=== PATIENT | male | born 1980 | race Caucasian/White ===

== ENCOUNTER 2022-08-25 08:30 | Outpatient (CLI) | payer OTHER, SELFPAY ==
[2022-08-25 13:47] LABS: Basophils Absolute Auto 0.05 K/uL (0.00-0.30); Basophils Percent Auto 0.8 % (0.0-3.0); Eosinophils Absolute Auto 0.28 K/uL (0.00-0.50); Eosinophils Percent Auto 4.6 % (0.0-7.0); Hematocrit 50.4 % (37.0-53.0); Hemoglobin* 16.9 gm/dL (13.5-17.5); Lymphocytes Absolute Auto 2.07 K/uL (0.90-2.90); Lymphocytes Percent Auto 34.2 % (20-44); Mean Corpuscular HGB Conc 34 gm/dL (32-36); Mean Corpuscular Hemoglobin 29 pg (26-34); Mean Corpuscular Volume 86 fL (80-100); Monocytes Percent Auto 10.4 % (0.0-11.0); Neutrophils Absolute Auto 3.02 K/uL (1.7-7.0); Platelet Count* 278 K/uL (140-440); RDW Coefficient of Variation % 11.8 % (11.5-15.5); Red Blood Count 5.85 m/uL (4.30-5.90); White Blood Count* 6.05 K/uL (4.50-11.00)
[2022-08-25 14:01] LABS: Slide Review Reflex No
[2022-08-25 14:36] LABS: Chloride* 101 mmol/L (96-114); Sodium* 137 mmol/L (135-149)
[2022-08-25 14:37] LABS: Potassium* 4.9 mmol/L (3.6-5.1)
[2022-08-25 14:39] LABS: Alanine Aminotransferase* 61 U/L (4-50); Carbon Dioxide* 27 mmol/L (20-32); Cholesterol* 222 mg/dL (90-199); Creatinine* 0.8 mg/dL (0.5-1.5); Estimated Glomerular Filt Rate 112 ml/min
[2022-08-25 14:40] LABS: Blood Urea Nitrogen* 14 mg/dL (5-24); Calcium* 9.7 mg/dL (8.4-10.6); Glucose* 99 mg/dL (60-115); HDL Cholesterol* 33 mg/dL (>=40); LDL Cholesterol Calculated 147 mg/dL (<100); Triglycerides* 211 mg/dL (40-149)
[2022-08-26 14:28] LABS: Testosterone, Adult Male 499 ng/dL (300-890)
== END 2022-08-25 08:31 | disposition home or self-care (01) ==
PROVIDERS: PCP Family Medicine; Visit Provider Family Medicine
DX: Z13.6 Encounter for screening for cardiovascular disorders (principal); R53.83 Other fatigue; I10 Essential (primary) hypertension; E78.5 Hyperlipidemia, unspecified
CPT/HCPCS: 80048; 80061; 84403; 84443; 84460; 85025

== ENCOUNTER 2022-11-27 19:30 | Outpatient (CLI) | payer OTHER, SELFPAY ==
--- NOTE | 2022-12-13 09:04 | W.PM.SLEEP ---
Sleep Study Details Details Interpreting Provider: Shahbaz Stubbs MD Date of Sleep Study: 11/27/22 Sleep Study Details: STUDY TYPE:? Home ? BMI:? 35.6 ORDERING PROVIDER:? Leonila INDICATION:? Concerns about sleep apnea ? SLEEP SUMMARY:? 476 minutes monitored RESPIRATORY SUMMARY:? AHI 23.1, supine 63.2, prone 17.6, left lateral 6.8, right lateral 3.6 Low oxygen 86 0.9% of the study oxygen less than 90% Snoring 2.7% PERIODIC LIMB MOVEMENTS OF SLEEP:? Not recorded CARDIAC:? Range 42-101, mean 65.1 beats per minute IMPRESSION:? Moderate obstructive sleep apnea overall with significant supine position dependency RECOMMENDATION: Treatment options would include AutoSet CPAP pressure 4-17 versus dental appliance. Weight loss is recommended. Dental appliance is unlikely to be effective.
== END 2022-11-27 19:31 | disposition home or self-care (01) ==
PROVIDERS: PCP Family Medicine; Visit Provider Family Medicine
DX: G47.33 Obstructive sleep apnea (adult) (pediatric) (principal)
CPT/HCPCS: 95806

== ENCOUNTER 2023-11-20 09:21 | Outpatient (CLI) | payer OTHER, SELFPAY | END 2023-11-20 09:22 | disposition home or self-care (01) | PROVIDERS: PCP Family Medicine; Visit Provider Family Medicine | DX: E78.5 Hyperlipidemia, unspecified (principal); I10 Essential (primary) hypertension | CPT/HCPCS: 80048; 80061; 84460; 85025 ==

== ENCOUNTER 2025-01-06 16:01 | Outpatient (CLI) | payer OTHER, SELFPAY | END 2025-01-06 16:02 | disposition home or self-care (01) | PROVIDERS: PCP Family Medicine; Visit Provider Family Medicine | DX: E78.2 Mixed hyperlipidemia (principal); I10 Essential (primary) hypertension; R53.83 Other fatigue; M79.12 Myalgia of auxiliary muscles, head and neck | CPT/HCPCS: 80048; 80061; 82550; 84443; 85025; 85651 ==

== ENCOUNTER 2025-10-21 15:56 | Emergency (ER) | payer OTHER, SELFPAY ==
[2025-10-21] VITALS (22 sets, daily range): BP systolic 104–123; BP diastolic 72–86; PULSE 67–94; RESP 11–19; TEMP 36.6; O2SAT 92–97
--- NOTE | 2025-10-21 16:30 | ED_ITS ---
HPI - General Adult General Date Seen: 10/21/25 Chief complaint: Shortness of Breath/Dyspnea Stated complaint: Tightness in chest, short of breath Time Seen by Provider: 10/21/25 16:07 History of Present Illness HPI narrative: 45-year-old male with a history hyperlipidemia, hypertension, sleep, history of right knee surgery with meniscus tear and osteoarthritis, who presents to the ER by private car this afternoon with concern for chest tightness and shortness of breath which began yesterday. No fever. Known sick contacts. He notes that he has had episodes, infrequently, dating back for several years where he sometimes gets chest tightness in the center of his chest. He recalls that he had an episode perhaps 10 years ago that had chest tightness radiating down his left arm that prompted to come to the ER. He had a negative workup after that visit. Does not sound like he ever had a stress test. He notes that for the past few days that he has just been feeling ?off. ? And feels like something is wrong. In particular, since yesterday he has been experiencing sub some sternal chest tightness. He had an episode that began mid to late afternoon yesterday,. He was at home, not doing any strenuous activity when he just started to feel some tightness in his chest. Sit in the center of his chest and in the upper. Does not radiate down his arm this time. It does not radiate to his back. It just feels like a tightness and like something is wrong. He is not nauseous. He was not feeling any palpitations during that episode. No dizziness. No abdominal pain. No fever. No cough. No known sick contacts. It sounds like his chest was pretty tight for a short period of time, couple of minutes and then got better but never completely back to normal last night. His chest was fairly normal this morning and then at around 11:00 a.m. he started having more tightness in his chest that is still persisting at the time of presentation here to the ER. Incidentally also sometimes feels palpitations in his heart, but they are not actually occurring today. He has a history of anxiety and says multiple times that he knows he has history of anxiety but is not anxious or panic Stanley here. He also says that he does not want to waste anyone time. I assured him that his chest pain symptoms are concerning and he does need workup. Our initial EKG does not show any clear ischemia but he needs troponin testing, chest x-ray, aspirin, nitro and much further workup. He consents to have lab draw. Related Data Home Medications ?Medication ?Instructions ?Recorded ?Confirmed multivitamin (Daily Multi-Vitamin 1 tab PO QDAY 10/21/25 tablet) metoprolol succinate 50 mg 50 mg PO DAILY 10/21/25 tablet,extended release 24 hr Previous Rx's ?Medication ?Instructions ?Recorded diclofenac sodium 75 mg 75 mg PO QDAY #180 tabs 01/04 11/30 tablet,delayed release losartan 100 mg tablet 100 mg PO QDAY #90 tabs 07/07 12/31 zolpidem 10 mg tablet 10 mg PO QHS PRN insomnia #3 0 tabs 07/18/25 aspirin 81 mg tablet 81 mg PO DAILY #14 tabs 10/06 04/30 Allergies Allergy/AdvReac Type Severity Reaction Status Date / Time No Known Drug Allergies Allergy Verified 10/21/25 16:03 [facility] Medical History (Updated 10/21/25 @ 19:46 by Pedro Finch MD) Mixed hyperlipidemia ?E78.2 - Mixed hyperlipidemia (ICD-10) Primary hypertension ?I10 - Essential (primary) hypertension (ICD-10) JEFFREY (obstructive sleep apnea) ?G47.33 - Obstructive sleep apnea (adult) (pediatric) (ICD-10) Bilateral carpal tunnel syndrome ?G56.03 - Carpal tunnel syndrome, bilateral upper limbs (ICD-10) Acute medial meniscal injury of right knee ?S83.8X1A - Sprain of other specified parts of right knee, initial encounter (ICD-10) Osteoarthritis of right knee ?M17.11 - Unilateral primary osteoarthritis, right knee (ICD-10) Surgical History Status post inguinal hernia repair ?Z98.890 - Other specified postprocedural states (ICD-10) ?Z87.19 - Personal history of other diseases of the digestive system (ICD-10) History of umbilical hernia repair ?Z98.890 - Other specified postprocedural states (ICD-10) ?Z87.19 - Personal history of other diseases of the digestive system (ICD-10) Family History Mother High blood pressure Other Multiple myeloma Social History (Updated 01/07/25 @ 14:35 by Stephanie Bentley, ORGANIZATIONAL DEVELOPMENT CONSULTANT) Narrative: ,2 kids, nonsmoker, no EtOH, 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[employer] What is your current living situation?: I presently have a place to live Problems where you live: no known problems In the past 12 months, utilities in danger of being shut off: no In past 12 months, lack of transportation kept you from medical appts, meetings, work, or getting things needed for daily living: no In the past 12 mos, have been you worried that your food would run out before you had money to buy more?: sometimes true In the past 12 mos, the food you bought just didn't last and you didn't have money to buy more?: sometimes true Smoking Status: Former smoker What tobacco products do you use: cigarettes Years smoked: 10 Smoking quit date/years: >15 years ago How often does anyone, including family, friends and others, physically hurt you : never How often does anyone, including family, friends and others, insult or talk down to you: rarely How often does anyone, including family, friends and others, threaten you with harm: never How often does anyone, including family, friends and others, scream or curse at you: never Health Related Social Needs: food insecurity (Z59.41) and Other personal risk factors, not elsewhere classified (Z91.89) Exam Narrative: Exam Narrative: Constitutional: Appears well-developed and well-nourished. Alert. Conversant. Non toxic. HENT: Head: Atraumatic. Nose: Nose normal. Mouth/Throat: Oral mucosa is clear and moist. no trismus. Pharynx normal. Tonsils symmetric. No tonsillar enlargement, erythema, or exudate. Eyes: Conjunctivae normal. EOM normal. Pupils equal, round, and reactive to light. No scleral icterus. Neck: Normal range of motion. Neck supple. No tracheal deviation present. No JVD Cardiovascular: Normal rate, regular rhythm. No gallop. No friction rub. No murmur heard. Symmetric radial artery pulses Pulmonary/Chest: Effort normal. No stridor. No respiratory distress. No wheezes. No rales. No rhonchi . No tenderness. Abdominal: Soft. Bowel sounds normal. No distension. No mass. No tenderness. No rebound. No guarding. Musculoskeletal: RUE: Normal range of motion. No tenderness. No deformity LUE: Normal range of motion. No tenderness. No deformity RLE: Normal range of motion. No edema. No tenderness. No deformity LLE: Normal range of motion. No edema. No tenderness. No deformity Neurological: Alert and oriented to person, place, and time. Normal strength. CN II-VII intact. No sensory deficit. GCS eye subscore is 4. GCS verbal subscore is 5. GCS motor subscore is 6. Normal coordination Skin: Skin is warm and dry. No rash noted. No pallor. Normal capillary refill. Psychiatric: Normal mood. Normal affect. Const: Vital Signs, click to edit/add: Vital Signs - 24 hr 10/21/25 15:59 10/21/25 16:17 10/21/25 16:30 Temperature 97.8 F Pulse Rate 81 81 Pulse Rate [Right Pulse Oximeter] 94 Respiratory Rate 16 18 13 Blood Pressure Blood Pressure [Ri ght Upper Arm] 123/77 Pulse Oximetry 94 94 94 Oxygen Delivery Me thod Room Air 10/21/25 16:45 10/21/25 17:00 10/21/25 17:15 Temperature Pulse Rate 81 83 Pulse Rate [Right Pulse Oximeter] Respiratory Rate 15 13 Blood Pressure Blood Pressure [Ri ght Upper Arm] Pulse Oximetry 96 96 Oxygen Delivery Me thod 10/21/25 17:30 10/21/25 17:45 10/21/25 18:00 Temperature Pulse Rate 72 81 79 Pulse Rate [Right Pulse Oximeter] Respiratory Rate 15 15 12 Blood Pressure Blood Pressure [Ri ght Upper Arm] Pulse Oximetry 95 96 95 Oxygen Delivery Me thod 10/21/25 18:07 10/21/25 18:09 10/21/25 18:11 Temperature Pulse Rate 91 76 82 Pulse Rate [Right Pulse Oximeter] Respiratory Rate 11 L 16 15 Blood Pressure 115/74 120/86 116/83 Blood Pressure [Ri ght Upper Arm] Pulse Oximetry 96 97 93 Oxygen Delivery Me thod Room Air 10/21/25 18:15 10/21/25 18:17 10/21/25 18:22 Temperature Pulse Rate 85 76 67 Pulse Rate [Right Pulse Oximeter] Respiratory Rate 13 15 19 Blood Pressure 110/77 115/77 Blood Pressure [Ri ght Upper Arm] Pulse Oximetry 92 93 95 Oxygen Delivery Me thod 10/21/25 18:27 10/21/25 18:30 10/21/25 18:33 Temperature Pulse Rate 76 79 82 Pulse Rate [Right Pulse Oximeter] Respiratory Rate 19 17 16 Blood Pressure 119/82 109/79 Blood Pressure [Ri ght Upper Arm] Pulse Oximetry 94 95 95 Oxygen Delivery Me thod 10/21/25 18:45 10/21/25 19:00 10/21/25 19:02 Temperature Pulse Rate 78 82 80 Pulse Rate [Right Pulse Oximeter] Respiratory Rate 19 18 12 Blood Pressure 104/72 Blood Pressure [Ri ght Upper Arm] Pulse Oximetry 96 94 96 Oxygen Delivery Me thod Room Air 10/21/25 19:15 Temperature Pulse Rate 79 Pulse Rate [Right Pulse Oximeter] Respiratory Rate 14 Blood Pressure Blood Pressure [Ri ght Upper Arm] Pulse Oximetry 95 Oxygen Delivery Me thod Course Course ED Course: Recheck-no change after nitro. Recheck-feeling better now. Got better on his own but not temporarily related to sublingual nitroglycerin. Currently pain-free. Vital Signs Vital signs: Initial Vital Signs Temperature 97.8 F 10/21/25 15:59 Temperature Source Temporal Artery Scan 10/21/25 15:59 Pulse Rate 94 10/21/25 15:59 Pulse Rhythm Regular 10/21/25 15:59 Pulse Strength 3+ Normal 10/21/25 15:59 Respiratory Rate 16 10/21/25 15:59 Blood Pressure 123/77 10/21/25 15:59 Blood Pressure Mean 92 10/21/25 15:59 Blood Pressure Position Sitting 10/21/25 15:59 Pulse Oximetry 94 10/21/25 15:59 Oxygen Delivery Method Room Air 10/21/25 15:59 Vital Signs Temperature 97.8 F 10/21/25 15:59 Pulse Rate 94 10/21/25 15:59 Respiratory Rate 16 10/21/25 15:59 Blood Pressure 123/77 10/21/25 15:59 Pulse Oximetry 94 10/21/25 15:59 Oxygen Delivery Method Room Air 10/21/25 15:59 Temperature 97.8 F 10/21/25 15:59 Pulse Rate 79 10/21/25 19:15 Respiratory Rate 14 10/21/25 19:15 Blood Pressure 104/72 10/21/25 19:02 Pulse Oximetry 95 10/21/25 19:15 Oxygen Delivery Method Room Air 10/21/25 19:02 Medications Administered Medications: Generic Name Dose Route Start Last Admin Trade Name Freq PRN Reason Stop Dose Admin Nitroglycerin 0.4 mg 10/21/25 16:53 10/21/25 18:08 Nitroglycerin 0.4 Mg Tab.Subl SUBLINGUAL 0.4 mg Q5M PRN Administration Discontinued Medications Generic Name Dose Route Start Last Admin Trade Name Freq PRN Reason Stop Dose Admin Aspirin 324 mg 10/21/25 16:53 10/21/25 18:06 Aspirin 81 Mg Tab.Chew PO 10/21/25 16:54 324 mg ONCE ONE Administration Medical Decision Making MDM Narrative Medical decision making narrative: This patient presents to the ER today for evaluation of chest discomfort that is been happening off and on for the past couple of days. Differential was broad. No evidence of palpitations, syncope or other cardiac dysrhythmia. We considered possible ACS, however workup with EKG and 2 hour delta troponin is negative. Given time since onset of symptoms, I do not think the patient needs to be admitted for further sets of enzymes. HEART score is 2, so overall low risk. Given the story being low risk, I think outpatient workup is appropriate. The patient does have significant concern for coronary disease and I think it is reasonable to get him scheduled for stress test and recommend close outpatien t follow-up for. EKG shows no evidence for pericarditis. Clinical presentation not suggestive of myocarditis. Chest x-ray shows no evidence for pneumonia, pneumothorax, pulmonary edema, pleural effusion, rib fracture, cardiomegaly. Mediastinum is normal on the x-ray. The patient has no ripping or tearing pain through to the back and has symmetric pulses on exam, no other acute neuro findings so I doubt aortic dissection. Risk of radiation and contrast exposure would outweigh the benefit of CT angiogram. We considered PE for this patient. Overall low risk and negative by PERC. Therefore will hold off on D-dimer testing and CT PA. No wheezing or bronchospasm to suggest COPD/asthma. No signs of chest wall cellulitis, shingles, injury. Consider possible reflux or esophageal spasm. However that would be a diagnosis of exclusion and needs further workup for coronary artery disease 1st. No symptoms or signs of esophageal rupture, upper GI bleed. With reasonable clinical confidence, I think the patient is safe for outpatient follow up. Discussed return precautions. Questions answered. Patient voices comfort with the plan. Lab Data Labs: Lab Results 10/21/25 10/21/25 10/21/25 Range/Units 16:06 16:15 19:10 WBC 7.64 (4.50-11.00) K/uL RBC 5.42 (4.30-5.90) m/uL Hgb 15.5 (13.5-17.5) gm/dL Hct 47.9 (37.0-53.0) % MCV 88 (80-100) fL MCH 29 (26-34) pg MCHC 32 (32-36) gm/dL RDW Coeff of Ary 11.8 (11.5-15.5) % Plt Count 285 (140-440) K/uL Neut % (Auto) 52.2 (42.0-72.0) % Lymph % (Auto) 32.1 (20-44) % Ada % (Auto) 11.3 H (0.0-11.0) % Eos % (Auto) 3.9 (0.0-7.0) % Baso % (Auto) 0.4 (0.0-3.0) % Neut # (Auto) 3.99 (1.7-7.0) K/uL Lymph # (Auto) 2.45 (0.90-2.90) K/uL Ada # (Auto) 0.90 (0.00-0.90) K/UL Eos # (Auto) 0.30 (0.00-0.50) K/uL Baso # (Auto) 0.03 (0.00-0.30) K/uL Abs Immat Gran (auto) 0.01 (0.00-0.30) K/uL Imm/Tot Granulo (auto) 0.1 % Sodium 137 (135-149) mmol/L Potassium 3.7 (3.6-5.1) mmol/L Chloride 101 (96-114) mmol/L Carbon Dioxide 28 (20-32) mmol/L Anion Gap 8 (7-15) mEq/L BUN 14 (5-24) mg/dL Creatinine 1.0 (0.5-1.5) mg/dL Estimated GFR 93 ml/min Glucose 93 (60-115) mg/dL Calcium 9.2 (8.4-10.6) mg/dL Total Bilirubin 0.4 (0.1-1.5) mg/dL AST 34 (12-35) U/L ALT 48 (4-50) U/L Alkaline Phosphatase 63 (40-150) U/L POC Troponin I High Sensi < 2.9 L < 2.9 L (2.9-28.0) pg/mL Total Protein 7.2 (6.0-8.3) g/dL Albumin 4.6 (3.3-5.0) g/dL Lipase 40 (23-300) U/L SARS-CoV-2 (PCR) Negative SARS-CoV-2 (Negative) Influenza Type A (PCR) Negative PCR FLU A (Negative) Influenza Type B (PCR) Negative PCR FLU B (Negative) RSV (PCR) Negative PCR RSV (Negative) Imaging Data Chest x-ray: Attestation: I have reviewed the pertinent imaging results. Radiologist's impression: IMPRESSION: No acute cardiopulmonary process. ECG Data Attestation: I personally reviewed and interpreted this ECG as follows: Interpretation: Normal sinus rhythm Rate 84 MO interval [address] segment and T-waves are normal. There may be a pattern of upsloping T-wave changes in leads V2-D 5 which are consistent with benign early repolarization QT 360, QTC 425 Discharge Plan Discharge Clinical Impression: Chest pain Patient Disposition: Home, Self-Care Condition: Stable Instructions: Chest Pain (DC) Additional Instructions: As we discussed, so far your workup in the ER looks reassuring. However it is very important for you to follow-up for stress test and get a checkup with your regular doctor within 1 week. You should receive a phone call from the stress test silk snapper tomorrow. Please start on aspirin 81 mg per day. continue until you see your regular doctor. At that point, you can decide whether or not to continue the aspirin. As we discussed, if you have any worsening symptoms including worsening pain, fatigue, trouble breathing, or any new symptoms such as fever, cough, back pain, abdominal pain, please come back to the ER right away. Prescriptions: New aspirin 81 mg tablet 81 mg PO DAILY Qty: 14 2RF No Action multivitamin [Daily Multi-Vitamin] Tablet 1 tab PO QDAY metoprolol succinate 50 mg tablet extended release 24 hr 50 mg PO DAILY diclofenac sodium 75 mg tablet,delayed release (DR/EC) 75 mg PO QDAY Qty: 180 3RF losartan 100 mg tablet 100 mg PO QDAY Qty: 90 1RF zolpidem 10 mg tablet 10 mg PO QHS PRN (Reason: insomnia) Qty: 30 5RF Follow Up/Referrals: Kris Keen MD [Primary Care Provider, Family Practice] Stand Alone Forms: MyHealth Info Instructions
[2025-10-21 16:51] LABS: PCR FLU A Negative PCR FLU A (Negative); PCR FLU B Negative PCR FLU B (Negative); PCR RSV Negative PCR RSV (Negative); SARS PCR* Negative SARS-CoV-2 (Negative)
--- NOTE | 2025-10-21 16:53 | CRLHL7_ITS ---
For Patients: As a result of the Cures Act, medical imaging exams and procedure reports are released immediately into your electronic medical record. You may view this report before your referring provider. If you have questions, please contact your health care provider. INDICATION: : CHEST TIGHTNESS COMPARISON: Chest radiograph on November 20, 2023 and August 08, 2015 TECHNIQUE: Two view(s) of the chest FINDINGS: The cardiomediastinal silhouette and pulmonary vasculature are unremarkable. There is no focal airspace consolidation, pleural effusion, or pneumothorax. No displaced fractures. IMPRESSION: No acute cardiopulmonary process. Dictated by Celso Gaston MD @ 10/21/2025 5:40:13 PM (Electronically Signed)
[2025-10-21 17:05] LABS: Hematocrit* 47.9 % (37.0-53.0); Hemoglobin* 15.5 gm/dL (13.5-17.5); Immature Granulocytes Abs Auto 0.01 K/uL (0.00-0.30); Immature Granulocytes Pct Auto 0.1 %; Lymphocytes Absolute Auto 2.45 K/uL (0.90-2.90); Mean Corpuscular HGB Conc 32 gm/dL (32-36); Mean Corpuscular Hemoglobin 29 pg (26-34); Mean Corpuscular Volume 88 fL (80-100); RDW Coefficient of Variation % 11.8 % (11.5-15.5); Red Blood Count* 5.42 m/uL (4.30-5.90); White Blood Count* 7.64 K/uL (4.50-11.00)
[2025-10-21 17:08] LABS: Slide Review Reflex No
[2025-10-21 17:17] LABS: Albumin* 4.6 g/dL (3.3-5.0); Chloride* 101 mmol/L (96-114)
[2025-10-21 17:18] LABS: Potassium* 3.7 mmol/L (3.6-5.1); Sodium* 137 mmol/L (135-149)
[2025-10-21 17:20] LABS: Alanine Aminotransferase* 48 U/L (4-50); Anion Gap 8 mEq/L (7-15); Aspartate Amino Transferase* 34 U/L (12-35); Blood Urea Nitrogen* 14 mg/dL (5-24); Carbon Dioxide* 28 mmol/L (20-32); Creatinine* 1.0 mg/dL (0.5-1.5); Estimated Glomerular Filt Rate 93 ml/min
[2025-10-21 17:21] LABS: Alkaline Phosphatase* 63 U/L (40-150); Bilirubin Total* 0.4 mg/dL (0.1-1.5); Calcium* 9.2 mg/dL (8.4-10.6); Glucose* 93 mg/dL (60-115); Total Protein* 7.2 g/dL (6.0-8.3)
[2025-10-21] MEDS: ASPIRIN 81 MG TAB.CHEW 324 MG PO (18:06)
[2025-10-21] MEDS: NITROGLYCERIN 0.4 MG TAB.SUBL SUBLINGUAL (18:08)
== END 2025-10-21 20:02 | disposition home or self-care (01) ==
PROVIDERS: Emergency Provider Emergency Medicine; PCP Family Medicine
DX: R07.9 Chest pain, unspecified (principal); F41.9 Anxiety disorder, unspecified; Z79.899 Other long term (current) drug therapy; Z87.891 Personal history of nicotine dependence
CPT/HCPCS: 36415; 71046; 80053; 83690; 84484; 85025; 87631; 93005; 99283; 99284; 99285; A9270